=== PATIENT | male | born 1980 | race Caucasian/White ===

== ENCOUNTER 2017-01-10 08:56 | Emergency (ER) | payer SELFPAY ==
[2017-01-10] MEDS ORDERED: XYLOCAINE 1% MPF 5 mL INFILTRATI ONE (11:25)
[2017-01-10] MEDS ORDERED: ROCEPHIN IM ONE (11:25)
[2017-01-10] MEDS ORDERED: ZITHROMAX PO ONE (11:25)
--- NOTE | 2017-01-10 12:19 | Emergency Department Report ---
ED Rash HPI - HPI Chief Complaint: Urogenital-Male Stated Complaint: STD CHECK UP Time Seen by Provider: 01/10/17 11:09 Duration: 4 Days Location: Other (left groin) Suspected Cause: Unknown Severity: moderate Other History: Patient is a 36-year-old male who presents due to a skin lesion on the left inguinal fold 4 days. Patient thinks that the lesion is related to an STD. Patient states that he is coughing told him that she has an STD. Patient denies any penile discharge, dysuria, hematuria or frequency. Patient states that he has 8 itching in the head of his penis. Patient denies any abdominal pain, nausea, vomiting or diarrhea. Patient has any back pain. ED Review of Systems ROS: Stated complaint: STD CHECK UP Other details as noted in HPI Comment: All other systems reviewed and negative Constitutional: no symptoms reported. denies: chills, diaphoresis, fever, malaise, weakness Respiratory: no symptoms reported. denies: cough, orthopnea, shortness of breath Gastrointestinal: denies: abdominal pain, nausea, vomiting, diarrhea, constipation Genitourinary: other (groin lesion). denies: urgency, dysuria, frequency, hematuria, discharge, testicular pain, testicular mass Musculoskeletal: denies: back pain Skin: lesions Neurological: denies: headache, weakness Psychiatric: denies: anxiety ED Past Medical Hx - Past Medical History Previous Medical History?: Yes Hx Asthma: Yes - Surgical History Past Surgical History?: No - Social History Smoking Status: Current Every Day Smoker Substance Use Type: Alcohol - Medications Home Medications: Home Medications Medication Instructions Recorded Confirmed Last Taken Type Mupirocin [Bactroban 2%] 1 applic TP TID #1 tube 01/10/17 Unknown Rx Sulfamethoxazole/Trimethoprim 1 each PO BID #14 tablet 01/10/17 Unknown Rx [Bactrim DS TAB] Rash Exam - Exam General: Vital signs noted. No distress. Alert and acting appropriately. Front/Back of Body, Lg (Color): 1 - there is an ulcer with area of induration. no erythema. Skin: Yes Other (there is induration on the left inguinal fold. there is ulcer an ulcer in the center of the induration due to patient picking and expressing the area. ) Other: Positive: Abdomen Normal ED Course Vital Signs 01/10/17 08:59 Temperature 98.5 F Pulse Rate 82 Respiratory 16 Rate Blood Pressure 134/90 O2 Sat by Pulse 99 Oximetry ED Medical Decision Making - Medical Decision Making Patient was in no acute distress, patient had a 3 x 3 cm area induration in the left inguinal area, patient had an a 1 cm ulcer due to draining and picking the skin. Patient states that he the area had been draining prior to arrival. no fluctuation, no erythema, no streaking, no edema. patient was treated for STD exposure. Patient was given a prescription for bactrim and bactroban to apply to the open wound. - Differential Diagnosis folliculitis, abscess, cellulitis Critical care attestation.: If time is entered above; I have spent that time in minutes in the direct care of this critically ill patient, excluding procedure time. ED Disposition Clinical Impression: Folliculitis Disposition: DC- TO HOME OR SELFCARE Is pt being admited?: No Does the pt Need Aspirin: No Condition: Good Instructions: Folliculitis (ED) Additional Instructions: Take Bactrim 1 tablet twice a day for 7 days. Apply Bactroban to the rash in your groin area. Return to the ER for any complications. Prescriptions: Mupirocin [Bactroban 2%] 1 applic TP TID #1 tube Sulfamethoxazole/Trimethoprim [Bactrim DS TAB] 1 each PO BID #14 tablet Referrals: PRIMARY CARE, [Primary Care Provider] - 3-5 Days [facility] [Outside] - 3-5 Days Time of Disposition: 12:21
[2017-01-10 12:58] LABS: Bilirubin,Urine NEG (Negative); Blood,Urine NEG (Negative); Ketones,Urine NEG (Negative); Leukocyte Esterase,Urine NEG (Negative); Nitrite,Urine NEG (Negative); Protein,Urine <15 mg/dL mg/dL (Negative); Urobilinogen,Urine < 2.0 mg/dL (<2.0)
[2017-01-10 13:37] VITALS: BP 132/92
== END 2017-01-10 12:45 | disposition home or self-care (01) ==
LOC: ED 08:56
DX: L73.9 Follicular disorder, unspecified (principal); F17.210 Nicotine dependence, cigarettes, uncomplicated
CPT/HCPCS: 81001; 87591; 96372; 99283; J0696